=== PATIENT | female | born 1975 | race Caucasian/White ===

== ENCOUNTER 2022-12-12 06:07 | Day surgery (SDC) | payer BC ==
[2022-12-12] MEDS ORDERED: Lactated Ringers 1,000 ML IV ONE (06:20)
[2022-12-12] MEDS ORDERED: Lactated Ringers 1,000 ML IV SCH (06:30)
[2022-12-12] MEDS ORDERED: Xylocaine-Mpf 2% 5 Ml Vial ONE (08:01)
[2022-12-12] MEDS ORDERED: DIPRIVAN 200 MG/20 ML IV ONE ×2 (08:01→08:16)
[2022-12-12 08:59] VITALS: O2SAT 100
[2022-12-12 10:14] VITALS: BP 114/73; PULSE 79
--- NOTE | 2022-12-12 11:04 | OP ---
SURGERY DATE/TIME: 12/12/2022 0735 PREOPERATIVE DIAGNOSIS: Screening colonoscopy. POSTOPERATIVE DIAGNOSIS: Normal colon. PROCEDURE: Colonoscopy. SURGEON: Rod Randhawa M.D. ANESTHESIA: MAC by Mc Diaz CRNA. ESTIMATED BLOOD LOSS: None. SPECIMENS: None. DESCRIPTION OF PROCEDURE: After informed written consent was obtained, the patient was taken to the endoscopy suite. She was placed in left lateral decubitus position. Anesthesia was titrated to desired level of consciousness. Digital rectal exam showed normal sphincter tone and no internal lesions. The scope was inserted into the rectum and sequentially the entire colonic mucosa was traversed. The level of cecum was reached and verified with direct visualization of the ileocecal valve. Upon withdrawal careful mucosal inspection revealed no gross abnormalities. Prior to withdrawal retroflexion was performed and showed no internal lesions. The scope was removed. The patient was transferred to the recovery room in good condition.
== END 2022-12-12 09:50 | disposition home or self-care (01) ==
LOC: SDC 06:07
PROVIDERS: ATTEND Family Medicine
DX: Z12.11 Encounter for screening for malignant neoplasm of colon (principal)
CPT/HCPCS: 81025; J2704

== ENCOUNTER 2024-01-11 20:44 | Emergency (ER) | payer BC ==
[2024-01-11 21:01] VITALS: TEMP 96.3
[2024-01-11 22:35] LABS: Absolute Neutrophil Ct (ANC) 6.88 x10^3/uL (1.4-6.9); BASOPHIL % 0.4 % (0.0-0.4); Basophil (Absolute #) 0.04 x10^3/uL (0-0.4); Eosinophil % 1.6 % (0.00-5.0); Eosinophil (Absolute #) 0.15 x10^3/uL (0-0.5); Hematocrit 40.9 % (35-47); IMMATURE GRAN # 0.02 x10^3u/L (0.00-0.03); IMMATURE GRAN % 0.2 % (0.00-0.4); Lymphocyte (Absolute #) 1.99 x10^3/uL (1.0-4.6); Lymphocytes % 20.8 % (24.0-44.0); Mean Cell Volume 95.1 fL (78-100); Mean Corpuscular Hemoglobin 30.2 pg (26-32); Mean Corpuscular Hgb Concent. 31.8 g/dL (32-36); Monocyte (Absolute #) 0.47 x10^3/uL (0.0-1.3); Monocytes % 4.9 % (0.0-12.0); Neutrophil % 72.1 % (36.0-66.0); Platelet Count 317 x10^3/uL (150-450); Red Cell Distribution Width 13.2 % (11.5-14.0); White Blood Count 9.6 x10^3/uL (4.0-10.5)
[2024-01-11 22:47] LABS: ALBUMIN 4.2 g/dL (3.5-5.0); ANION GAP 11.5 MEQ/L (5-15); BILIRUBIN,TOTAL 0.3 mg/dL (0.2-1.3); Creatinine 1 1.09 mg/dL (0.52-1.04); EST GLOMERULAR FILTRATION RATE 61.9 ML/MIN; Potassium 3.9 mmol/L (3.5-5.1); Total Protein 7.5 g/dL (6.3-8.2)
[2024-01-11 23:02] VITALS: RESP 16
[2024-01-11] MEDS ORDERED: Zofran 4 MG/2 ML VIAL ONE (23:49)
[2024-01-11] MEDS ORDERED: Sodium Chloride 0.9% 1000 ML 1,000 ML ONE (23:49)
[2024-01-11] MEDS ORDERED: Pepcid 20 MG VIAL IV ONE (23:49)
--- NOTE | 2024-01-11 23:51 | ERPHSYRPT ---
- History of Present Illness Time Seen by Provider: 01/11/24 21:00 Historian: patient Patient Subjective Stated Complaint: pt states that she was eating veggie soup and began to have chest pain Triage Nursing Assessment: pt ambulated into the er; pt is axo x4; pt is anxiou s; c/o chest pain; pt state 7/10 pain to chest, mid sternum; clear apical; clear lung sounds in all lobes; strong mary radial pulses; strong mary pedal pulses; skin PDW; no respiratory distress; hypertensive Physician History: 48yo f presents for 2hr epigastric pain that began while she was eating vegetable soup. Pt states she felt like she got a piece of vegetable stuck in her throat, globus sensation resolved but she continued to have epigastric discomfort. Pt reports some associated nausea, but denies radiation of pain, denies vomiting, ARTEAGA, vision changes, numbness/tingling in extremities. Pt does have hx of GERD, denies significant cardiac hx. 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, hour(s) (2h precinct captain) Activities at Onset: other (eating) Quality: burning Abdominal Pain Onset Location: epigastric Pain Radiation: no radiation Severity of Pain-Max: moderate Severity of Pain-Current: mild Modifying Factors: Improves With: nothing Associated Symptoms: nausea, No back, No chest pain, No diaphoresis, No shortness of breath, No vomiting Previous symptoms: no prior history Allergies/Adverse Reactions: Sulfa (Sulfonamide Antibiotics) Allergy (Mild, Verified 01/11/24 20:47) Rash levofloxacin [From Levaquin] Allergy (Verified 01/11/24 20:47) Rash tuberculin, purified protein deriva Adverse Reaction (Verified 01/11/24 20:47) Rash Home Medications: Ascorbic Acid [Vitamin C] 1,000 mg PO DAILY 12/03/22 [History] Cholecalciferol (Vitamin D3) [Vitamin D] 1.25 mg PO UD 12/03/22 [History] Fexofenadine HCl [Genevieve Allergy] 180 mg OINH DAILY 12/03/22 [History] Levothyroxine Sodium [Synthroid] 62.5 mcg PO DAILY 12/03/22 [History] Norethindrone [Incassia] 1 tab PO DAILY 12/03/22 [History] Spironolactone 25 mg [Aldactone 25 MG] 50 mg PO DAILY 12/03/22 [History] Zinc Amino Acid Chelate [Zinc] 50 mg PO DAILY 12/03/22 [History] Hx Tetanus, Diphtheria Vaccination/Date Given: Yes Hx Influenza Vaccination/Date Given: Yes Hx Pneumococcal Vaccination/Date Given: No Immunizations Up to Date: No Travel Risk - International Travel Have you traveled outside of the country in past 3 weeks: No - Emerging Infectious Disease Are you exhibiting symptoms associated with any current EIDs: No - Review of Systems Constitutional: No Symptoms Respiratory: No Symptoms Cardiac: No Symptoms Abdominal/Gastrointestinal: Abdominal Pain, Nausea, No Vomiting, No Hematemesis, No Hematochezia - Past Medical History Pertinent Past Medical History: Yes Neurological History: No Pertinent History ENT History: No Pertinent History Cardiac History: No Pertinent History Respiratory History: No Pertinent History Endocrine Medical History: Hypoglycemia, Hypothyroidism Musculoskeletal History: No Pertinent History GI Medical History: No Pertinent History History: No Pertinent History Psycho-Social History: No Pertinent History Other Medical History: PCOS - Past Surgical History Past Surgical History: Yes Neuro Surgical History: No Pertinent History Cardiac: No Pertinent History Respiratory: No Pertinent History Gastrointestinal: No Pertinent History Genitourinary: No Pertinent History Musculoskeletal: No Pertinent History Female Surgical History: Dilation & Curettage, Section Other Surgical History: miscarriage 1999 , two c-sections - Female History Hx Now: No - Social History Smoking Status: Former smoker Exposure to second hand smoke: No Drug Use: none Patient Lives Alone: No - Nursing Vital Signs Nursing Vital Signs: Initial Vital Signs Temperature 96.3 F 01/11/24 20:46 Pulse Rate 99 H 01/11/24 20:46 Respiratory Rate 20 01/11/24 20:46 Blood Pressure 156/98 01/11/24 20:46 O2 Sat by Pulse Oximetry 100 01/11/24 20:46 Pain Scale Pain Intensity 2 - Physical Exam General Appearance: no apparent distress, alert Respiratory Exam: normal breath sounds, lungs clear, airway intact, No chest tenderness, No respiratory distress, No diminished breath sounds Cardiovascular Exam: regular rate/rhythm, normal heart sounds, normal peripheral pulses Gastrointestinal/Abdomen Exam: soft, normal bowel sounds, No tenderness, No distention, No guarding, No rebound Neurologic Exam: alert, oriented x 3, 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, normal mood/affect SpO2 Interpretation: normal SpO2: 96 O2 Delivery: Room Air - Course EKG Interpreted by Me: RATE (69), Sinus Rhythm, NORMAL AXIS, Other (no acute ST changes, not suggestive of ischemia; rhythm strip shows slower rhythm at end of sequence) Ordered Tests: Active Orders 24 hr Category Date Time Status ABDOMEN AND PELVIS W CONTRAST [CT] Stat Exams 01/11/24 23:46 Completed CHEST 1 VIEW (PORTABLE) Stat Exams 01/11/24 22:14 Taken CBC W DIFF Stat Lab 01/11/24 22:29 Completed CMP Stat Lab 01/11/24 22:29 Completed LIPASE Stat Lab 01/11/24 22:50 Completed TROPONIN Q4H Lab 01/11/24 22:29 Completed TROPONIN Q4H Lab 01/12/24 00:58 Completed TROPONIN Q4H Lab 01/12/24 04:45 Ordered TROPONIN Q4H Lab 01/12/24 08:45 Ordered TROPONIN Q4H Lab 01/12/24 12:45 Ordered TROPONIN Q4H Lab 01/12/24 16:45 Ordered TROPONIN Q4H Lab 01/12/24 20:45 Ordered Medication Summary Discontinued Medications Generic Name Dose Route Start Last Admin Trade Name Freq PRN Reason Stop Dose Admin Famotidine 20 mg 01/11/24 23:43 01/11/24 23:54 Famotidine 20 Mg/1 Vial IV 01/11/24 23:44 20 mg STAT ONE Administration Famotidine Confirm 01/11/24 23:49 Famotidine 20 Mg/1 Vial Administered 01/11/24 23:50 Dose 20 mg IV .STK-MED ONE Sodium Chloride 1,000 mls @ 999 mls/hr 01/11/24 23:46 01/12/24 00:58 Sodium Chloride 0.9% 1000 Ml IV 01/12/24 00:46 Infused .Q1H1M STA Infusion Sodium Chloride Confirm 01/11/24 23:49 Sodium Chloride 0.9% 1000 Ml Administered 01/11/24 23:50 Dose 1,000 mls @ ud .ROUTE .STK-MED ONE Ondansetron HCl 4 mg 01/11/24 23:46 01/11/24 23:54 Ondansetron Hcl 4 Mg/2 Ml Vial IV 01/11/24 23:47 4 mg STAT ONE Administration Ondansetron HCl Confirm 03/23/24 23:49 Ondansetron Hcl 4 Mg/2 Ml Vial Administered 01/11/24 23:50 Dose 4 mg .ROUTE .[facility]-MED ONE Lab/Rad Data: Laboratory Result Diagrams 01/11/24 22:29 01/11/24 22:29 Laboratory Results 01/12/24 01/11/24 01/11/24 Range/Units 00:58 22:50 22:29 WBC (4.0-10.5) x10^3/uL RBC (4.1-5.4) x10^6/uL Hgb (12.0-16.0) g/dL Hct (35-47) % MCV (78-100) fL MCH (26-32) pg MCHC (32-36) g/dL RDW (11.5-14.0) % Plt Count (150-450) x10^3/uL MPV (7.5-11.0) fL Gran % (36.0-66.0) % Immature Gran % (Auto) (0.00-0.4) % Nucleat RBC Rel Count (0.00-0.1) % Eos # (Auto) (0-0.5) x10^3/uL Immature Gran # (Auto) (0.00-0.03) x10^3u/L Absolute Lymphs (auto) (1.0-4.6) x10^3/uL Absolute Monos (auto) (0.0-1.3) x10^3/uL Absolute Nucleated RBC (0.00-0.01) x10^3u/L Lymphocytes % (24.0-44.0) % Monocytes % (0.0-12.0) % Eosinophils % (0.00-5.0) % Basophils % (0.0-0.4) % Absolute Granulocytes (1.4-6.9) x10^3/uL Basophils # (0-0.4) x10^3/uL Sodium (135-145) mmol/L Potassium (3.5-5.1) mmol/L Chloride (98-107) mmol/L Carbon Dioxide (22-30) mmol/L Anion Gap (5-15) MEQ/L BUN (7-17) mg/dL Creatinine (0.52-1.04) mg/dL Estimated GFR ML/MIN Glucose (74-106) mg/dL Calcium (8.4-10.2) mg/dL Total Bilirubin (0.2-1.3) mg/dL AST (14-36) U/L ALT (0-35) U/L Alkaline Phosphatase (38-126) U/L Troponin I < 0.012 < 0.012 (0.000-0.034) ng/mL Serum Total Protein (6.3-8.2) g/dL Albumin (3.5-5.0) g/dL Lipase 120 (23-300) U/L 01/11/24 01/11/24 Range/Units 22:29 22:29 WBC 9.6 (4.0-10.5) x10^3/uL RBC 4.30 (4.1-5.4) x10^6/uL Hgb 13.0 (12.0-16.0) g/dL Hct 40.9 (35-47) % MCV 95.1 (78-100) fL MCH 30.2 (26-32) pg MCHC 31.8 L (32-36) g/dL RDW 13.2 (11.5-14.0) % Plt Count 317 (150-450) x10^3/uL MPV 10.0 (7.5-11.0) fL Gran % 72.1 H (36.0-66.0) % Immature Gran % (Auto) 0.2 (0.00-0.4) % Nucleat RBC Rel Count 0.0 (0.00-0.1) % Eos # (Auto) 0.15 (0-0.5) x10^3/uL Immature Gran # (Auto) 0.02 (0.00-0.03) x10^3u/L Absolute Lymphs (auto) 1.99 (1.0-4.6) x10^3/uL Absolute Monos (auto) 0.47 (0.0-1.3) x10^3/uL Absolute Nucleated RBC 0.00 (0.00-0.01) x10^3u/L Lymphocytes % 20.8 L (24.0-44.0) % Monocytes % 4.9 (0.0-12.0) % Eosinophils % 1.6 (0.00-5.0) % Basophils % 0.4 (0.0-0.4) % Absolute Granulocytes 6.88 (1.4-6.9) x10^3/uL Basophils # 0.04 (0-0.4) x10^3/uL Sodium 140 (135-145) mmol/L Potassium 3.9 (3.5-5.1) mmol/L Chloride 103 (98-107) mmol/L Carbon Dioxide 30 (22-30) mmol/L Anion Gap 11.5 (5-15) MEQ/L BUN 15 (7-17) mg/dL Creatinine 1.09 H (0.52-1.04) mg/dL Estimated GFR 61.9 ML/MIN Glucose 91 (74-106) mg/dL Calcium 9.0 (8.4-10.2) mg/dL Total Bilirubin 0.30 (0.2-1.3) mg/dL AST 39 H (14-36) U/L ALT 42 H (0-35) U/L Alkaline Phosphatase 75 (38-126) U/L Troponin I (0.000-0.034) ng/mL Serum Total Protein 7.5 (6.3-8.2) g/dL Albumin 4.2 (3.5-5.0) g/dL Lipase (23-300) U/L - Progress Progress: improved Progress Note: 01/11/24 23:48 pt has had 2 episodes NBNB emesis in ED, states vomiting relieves her epigastric pain given 4mg zofran IV, 20mg famotadine IV, 1L NS bolus started will obtain CT abd/pel w/ contrast liver enzymes mildly elevated, trop negative, labs otherwise grossly normal 01/12/24 01:56 1. Cholelithiasis; no features of acute cholecystitis at present however, possibility of chronic cholecystitis cannot be ruled out in view of markedly contracted gallbladder- 2. Few punctate splenic calcifications; deferred surgery consult in absence of acute cholecystitis pt reports improvement in sx following zofran, no more episodes of emesis discussed findings w/ pt Need outpatient follow up w/ general surgery for monitoring, possible removal in future F/u w/ PCP Dr Randhawa this week, can help facilitate general surgery consult Prescription for zofran 4mg ODT sent to pharmacy return to ED if: fever develops, pain is unrelenting, unable to tolerate oral intake, develop cp, bloody vomiting Counseled pt/family regarding: lab results, diagnosis, need for follow-up, rad results Medical Desision Making - Diagnostic Testing Diagnostic test were ordered, analyzed, and reviewed by me: Yes Radiological Interpretation: Reviewed by me, Teleradiologist Report - Risk of complications Minimal Risk: Minimal risk of morbidity - Departure Departure Disposition: Home Clinical Impression: Cholelithiasis Qualifiers: Cholelithiasis location: gallbladder Cholecystitis presence: without cholecystitis Biliary obstruction: without biliary obstruction Qualified Code(s): K80.20 - Calculus of gallbladder without cholecystitis without obstruction Condition: Stable Critical Care Time: No Referrals: FERDINAND TANNER, [employer] [Primary Care Provider] - Follow up/PCP as directed Additional Instructions: Need outpatient follow up w/ general surgery for monitoring, possible removal in future F/u w/ PCP Dr Randhawa this week, can help facilitate general surgery consult Prescription for zofran 4mg ODT sent to pharmacy return to ED if: fever develops, pain is unrelenting, unable to tolerate oral intake, develop cp, bloody vomiting Prescriptions: Ondansetron ODT 4 MG [Zofran Odt 4 mg] 4 mg PO Q6H PRN PRN #20 tablet PRN Reason: Nausea
[2024-01-11] MEDS: Sodium Chloride 0.9% 1000 ML 1,000 ML IV STA (23:53)
[2024-01-11] MEDS: Pepcid 20 MG VIAL IV ONE (23:54)
[2024-01-11] MEDS: Zofran 4 MG/2 ML VIAL IV ONE (23:54)
[2024-01-12 01:01] VITALS: O2SAT 96
--- NOTE | 2024-01-12 01:48 | XRAY ---
CLINICAL HISTORY: epigastric pain TECHNIQUE: Multiple contiguous axial images were obtained from the level of diaphragm to the pubis symphysis. This study was acquired after the IV administration of iodinated contrast material, given the patients indications for the examination. If IV contrast material had not been administered, the likelihood of detecting abnormalities relevant to the patients condition would have been substantially decreased. Coronal and sagittal reformatted images were generated and reviewed to improve anatomic localization and optimize lesion detection. CT scan was performed according to ALARA (as low as reasonable achievable). COMPARISON: None FINDINGS: Bilateral dependent ground glass opacities likely due to subsegmental atelectasis. Calcified nodule measuring 4.8 mm x 4 mm noted in left lung base. The rest of visualized lung bases are clear. ABDOMEN/PELVIS: The liver is normal in size and attenuation. No focal liver lesions are seen. There is no intra or extrahepatic biliary ductal dilatation. Hepatic vasculature is patent. The gallbladder lumen is filled with multiple hyperdense calculus, largest measuring 15.4 mm x 9.1 mm. Gall bladder wall thickness measures 2.8 mm, within normal limits. No pericholecystic fat stranding or fluid collections. Few punctate calcifications noted in the splenic parenchyma. The rest of spleen, pancreas, and adrenal glands are unremarkable. The kidneys are normal in size and attenuation. There is no hydronephrosis or perinephric fat stranding. No renal calculi or renal masses are identified. The ureters are normal in caliber and no ureteral calculi are seen. The bladder is normal in contour. No evidence of focal or diffuse bowel wall thickening or evidence of bowel obstruction is seen. The appendix is visualized in the right lower quadrant and appears within normal limits. No adenopathy or fluid collections are seen. The aorta is normal in caliber. No aggressive appearing osseous lesions are identified. Mild degerative spine changes noted. IMPRESSION: 1. Cholelithiasis; no features of acute cholecystitis at present however, possibility of chronic cholecystitis cannot be ruled out in view of markedly contracted gallbladder- 2. Few punctate splenic calcifications; Electronically Signed by: Omi Burger MD. (01/12/2024 01:43:10 EDT)
[2024-01-12 02:06] VITALS: BP 125/96; PULSE 84
--- NOTE | 2024-01-12 08:52 | XRAY ---
Indication: Chest pain. Comparison: None Portable chest demonstrates normal heart and lungs with incidental tiny left base calcified granuloma. Bony thorax intact.
== END 2024-01-12 02:15 | disposition home or self-care (01) ==
LOC: ED 20:44
DX: K80.20 Calculus of gallbladder without cholecystitis without obstruction (principal); R10.13 Epigastric pain; R11.0 Nausea; Z79.899 Other long term (current) drug therapy
CPT/HCPCS: 36000; 36415; 71045; 74177; 80053; 83690; 84484; 85025; 93005; 96360; 96374; 96375; 99284; J2405

== ENCOUNTER 2024-03-05 08:32 | Day surgery (SDC) | payer BC ==
--- NOTE | 2024-03-04 10:18 | HP ---
DATE OF SURGERY: 03/05/2024 1132 HISTORY OF PRESENT ILLNESS: The patient is a 49-year-old female presents with complaints of some heartburn and nausea. She has been on some heartburn medicine. She has pain that is really bad into the chest. There is nausea and vomiting with this. She had an attack that brought her to the ER. CT scan showed cholelithiasis. She also has a lot of bloating with this. She has been on a low fat diet and that has helped some of her symptoms. PAST MEDICAL HISTORY: Thyroid. Hypertension. PAST SURGICAL HISTORY: section. D&C. ALLERGIES: SULFA (RASH). LEVAQUIN (RASH). TUBERCULIN TEST (RASH). MEDICATIONS: Fexofenadine, vitamin C, vitamin D3, zinc, spironolactone, levothyroxine. FAMILY HISTORY: Thyroid. Asthma. SOCIAL HISTORY: Former smoker. Occasional alcohol. REVIEW OF SYSTEMS: CONSTITUTIONAL: Denies fever or chills. CHEST: Denies shortness of breath. CVS: Denies chest pain. ABDOMEN: Reports abdominal pain. PHYSICAL EXAMINATION: GENERAL: No acute distress. CHEST: Nonlabored. No shortness of breath. CVS: Regular rate and rhythm. ABDOMEN: Soft. IMPRESSION: Cholelithiasis, epigastric pain. PLAN: Laparoscopic cholecystectomy and EGD with Dr. Osmin Stallings. As dictated by Ashley Diana NP.
[2024-03-05] MEDS ORDERED: Lactated Ringers 1,000 ML IV ONE ×2 (08:54→12:47)
[2024-03-05] MEDS: Lactated Ringers 1,000 ML IV SCH (08:58)
[2024-03-05] MEDS ORDERED: MEFOXIN 2 GM PREMIX** 2 GM/50 ML ML IV ONE (08:59)
[2024-03-05] MEDS: MEFOXIN 2 GM PREMIX** 2 GM/50 ML ML IV SCH (09:01)
[2024-03-05 09:19] LABS: Absolute Neutrophil Ct (ANC) 3.13 x10^3/uL (1.4-6.9); BASOPHIL % 0.7 % (0.0-0.4); Basophil (Absolute #) 0.04 x10^3/uL (0-0.4); Eosinophil % 2.3 % (0.00-5.0); Eosinophil (Absolute #) 0.13 x10^3/uL (0-0.5); Hematocrit 38.6 % (35-47); Hemoglobin 12.9 g/dL (12.0-16.0); IMMATURE GRAN # 0.01 x10^3u/L (0.00-0.03); IMMATURE GRAN % 0.2 % (0.00-0.4); Lymphocyte (Absolute #) 1.96 x10^3/uL (1.0-4.6); Lymphocytes % 34.6 % (24.0-44.0); Mean Cell Volume 90.8 fL (78-100); Mean Corpuscular Hemoglobin 30.4 pg (26-32); Mean Corpuscular Hgb Concent. 33.4 g/dL (32-36); Mean Platelet Volume 9.8 fL (7.5-11.0); Monocytes % 7.1 % (0.0-12.0); Neutrophil % 55.1 % (36.0-66.0); Platelet Count 270 x10^3/uL (150-450); Red Blood Count 4.25 x10^6/uL (4.1-5.4); Red Cell Distribution Width 13.3 % (11.5-14.0); White Blood Count 5.7 x10^3/uL (4.0-10.5)
[2024-03-05 09:21] LABS: HCG URINE TEST NEGATIVE (NEGATIVE)
[2024-03-05 09:34] LABS: ALBUMIN 4.1 g/dL (3.5-5.0); BILIRUBIN,TOTAL 0.8 mg/dL (0.2-1.3); Calcium 8.7 mg/dL (8.4-10.2); Creatinine 1 0.77 mg/dL (0.52-1.04); EST GLOMERULAR FILTRATION RATE 93.3 ML/MIN; Potassium 3.8 mmol/L (3.5-5.1); Total Protein 7.2 g/dL (6.3-8.2)
[2024-03-05] MEDS ORDERED: ROCURONIUM BROMIDE IV ONE (10:44)
[2024-03-05] MEDS ORDERED: Versed 2 MG/2 ML Injection ONE (10:45)
[2024-03-05] MEDS ORDERED: DIPRIVAN 200 MG/20 ML IV ONE (10:45)
[2024-03-05] MEDS ORDERED: SUBLIMAZE 100 MCG/2 ML ONE ×3 (10:45→13:04)
[2024-03-05] MEDS ORDERED: Sensorcaine 0.25% 10 ML ONE (10:51)
[2024-03-05] MEDS ORDERED: BRIDION 200MG/2ML IV ONE (12:23)
[2024-03-05] MEDS ORDERED: Hydromorphone 1 mg/ml Injection ONE ×2 (12:58→13:39)
[2024-03-05] MEDS ORDERED: TORAdol 30 mg Injection ONE (13:21)
[2024-03-05] MEDS: Zofran 4 MG/2 ML VIAL IV STA (14:32)
[2024-03-05 14:43] VITALS: RESP 16
[2024-03-05 15:52] VITALS: BP 157/93; PULSE 89; TEMP 97.4; O2SAT 98
--- NOTE | 2024-03-06 08:41 | OP ---
SURGERY DATE/TIME: 03/05/2024 1132 PREOPERATIVE DIAGNOSIS: Epigastric pain and gallstones POSTOPERATIVE DIAGNOSES: 1) Normal EGD. 2) Symptomatic cholelithiasis. PROCEDURE: Laparoscopic cholecystectomy. SURGEON: Dr. Osmin Stallings. AREA INTELLIGENCE TECHNICIAN: Garry Freire, Medical Student III. ANESTHESIA: General. DRAINS: None. COMPLICATIONS: None. CONDITION: Stable. DESCRIPTION OF PROCEDURE AND FINDINGS: Patient taken to surgery. General anesthetic, routine prep and drape. Veress needle inserted. Opening pressure of -1, insufflating pressure 14. Four - 5's. Good visualization. Fairly large gallbladder. Cystic duct was small almost pin point triply clipped and transected. Common bile duct was large 1 to 1.2 cm. Gallbladder rolled out of gallbladder fossa. Gallbladder delivered through epigastric port and about 90% of the stones removed. About 5 to 10% was scattered right under the incision picked up with stone scoop. The field was dry and clean at this time. Gallbladder bed had been just a hair raw but it was not bleeding at all. Hole closure device was used with 0 Vicryl. CO2 exsufflated. Skin closed with 4-0 Vicryl and Steri-Strips. The patient tolerated the procedure satisfactorily.
== END 2024-03-05 16:05 | disposition home or self-care (01) ==
LOC: SDC 08:32
PROVIDERS: ATTEND Surgery
DX: K80.20 Calculus of gallbladder without cholecystitis without obstruction (principal); R10.13 Epigastric pain
CPT/HCPCS: 80053; 81025; 85025; J0694; J1170; J1885; J2250; J2405; J2704; J3010